=== PATIENT | female | born 2000 | race Caucasian/White ===

== ENCOUNTER 2023-12-09 15:04 | Outpatient (CLI) | payer BC, SELFPAY ==
--- NOTE | ~2023-12-09 | XR_ITS ---
XR lumbar spine 2-3V 12/09/2023 15:53 Indication: Low back Procedure: 3 views lumbar spine Comparison: No prior studies for comparison. Findings: Vertebral body heights are maintained. Pedicles intact. No paraspinal soft tissue abnormali ty. Sacral foramen are symmetric. No evidence for spondylolisthesis. Impression: 1: No significant abnormality of the lumbar spine. Reviewed, dictated and finalized at location B. Impression: 1: No significant abnormality of the lumbar spine.
--- NOTE | ~2023-12-09 | MR_ITS ---
MRI of the lumbar spine Clinical History: Back pain Technique: Axial T2-weighted images, and sagittal T1-weighted, T2-weighted, and T2 fat-sat images wer e acquired. Findings: There is no fracture or subluxation of the lumbar spine. Vertebral bodies maintain normal h eight and alignment. No focal bone marrow signal abnormality seen.. Diffuse T1 hypointensity could re flect underlying anemia/reactive marrow conversion. At L1-L2, there is no disc bulge or herniation. No spinal canal stenosis or neural foraminal narrowin g. At L2-L3, L3-L4, L4-L5, there is no disc bulge or herniation. No spinal canal stenosis or neural fora alonso narrowing at these levels. There is mild facet arthropathy bilaterally at L4-L5. At L5-S1, there is tiny disc bulge. No spinal canal stenosis or neural foraminal narrowing. Paravertebral soft tissues are unremarkable. Impression: Minimal degenerative change, as above. Reviewed, dictated and finalized at [facility]. Impression: Minimal degenerative change, as above.
== END 2023-12-09 15:05 | disposition home or self-care (01) ==
PROVIDERS: PCP Physician Assistant; Visit Provider Physician Assistant
DX: M47.896 Other spondylosis, lumbar region (principal)
CPT/HCPCS: 72100; 72148

== ENCOUNTER 2023-12-23 14:21 | Outpatient (CLI) | payer BC, SELFPAY ==
--- NOTE | ~2023-12-23 | XR_ITS ---
Thoracic spine: Clinical Indication: Back pain AP and lateral views were performed. No fracture is seen. There is normal alignment of the vertebrae. The intervertebral disc spaces appe ar normal. Paravertebral soft tissues appear normal. Impression: No significant abnormalities noted. Reviewed, dictated and finalized at [facility]. Impression: No significant abnormalities noted.
== END 2023-12-23 14:22 | disposition home or self-care (01) ==
LOC: ANHIMG 14:23
PROVIDERS: PCP Physician Assistant; Visit Provider Physician Assistant
DX: M54.6 Pain in thoracic spine (principal)
CPT/HCPCS: 72070

== ENCOUNTER 2025-02-15 10:54 | Outpatient (CLI) | payer BC, SELFPAY ==
--- NOTE | ~2025-02-15 | XR_ITS ---
AP lateral views of the right hip Clinical history: Pain Findings: No acute fracture or dislocation is seen. Osseous alignment is anatomic. Right hip joint is intact. Soft tissues are unremarkable. Impression: No significant abnormality is seen. Reviewed, dictated and finalized at location M. Impression: No significant abnormality is seen.
--- OUTSIDE RECORDS SUMMARY | 2025-02-15 11:06 | XMS_ITS | Clinical Summary ---
Author Organization [facility] Address [address] [place] [address] Care Team Providers Care Joist Setter Name Role Phone Miryam Jackson Primary Care Provider [phone] Allergies No known active allergies Medications cyclobenzaprine (FLEXERIL) 10 mg tablet Take 1 tablet (10 mg total) by mouth 2 (two) times a day as needed for muscle spasms for up to 3 days 6 tablet 09/18/2023 Active naproxen (NAPROSYN) 500 mg tabletIndicatio ns:Pain Take 1 tablet (500 mg total) by mouth 2 (two) times a day with meals for 5 days 10 tablet 09/18/2023 Active lidocaine (LIDODERM) 5 % Place 1 patch on the skin daily for 7 days Remove & discard patch within 12 hours or as directed by MD. 7 patch 09/18/2023 Active Social History Tobacco Use Types Packs/Day Years Used Date Smoking Tobacco: Never Assessed Personal Safety Answer Date Recorded Have you ever been in or are you currently in a harmful physical or emotional relationship or is someone making you feel afraid or unsafe? Denies 09/18/2023 Comments Unknown Sex and Gender Information Value Date Recorded Sex Assigned at Not on file Legal Sex Female 10:23 AM CDT Gender Identity Not on file Sexual Orientation Not on file Last Filed Vital Signs Vital Sign Reading Time Taken Comments Blood Pressure 122/81 09/18/2023 3:21 PM INFANTRY SENIOR SERGEANT Pulse 79 09/18/2023 3:21 PM INFANTRY SENIOR SERGEANT Temperature 36.9 C (98.5 F) 09/18/2023 1:01 PM INFANTRY SENIOR SERGEANT Respiratory Rate 18 09/18/2023 3:21 PM INFANTRY SENIOR SERGEANT Oxygen Saturation 99% 09/18/2023 3:21 PM INFANTRY SENIOR SERGEANT Inhaled Oxygen Concentration - - Weight 95.6 kg (210 lb 12.2 oz) 09/18/2023 1:01 PM INFANTRY SENIOR SERGEANT Height 172.7 cm (5' 8) 09/18/2023 1:01 PM INFANTRY SENIOR SERGEANT Body Mass Index 32.05 09/18/2023 1:01 PM INFANTRY SENIOR SERGEANT Plan of Treatment Health Maintenance Due Date Last Done Comments Cervical Cancer Screening 1999 Depression Screening 1999 Hepatitis C Screening 1999 Regular Well Visit/Exam 18-64 2017 DTaP/Tdap/Td Vaccine (7 - Td or Tdap) 09/16/2021 09/16/2011, 03/25/2005, 03/25/2005, Additional history exists Covid-19 Vaccine ( season) 2024 01/02/2022, 10/18/2020, 09/27/2020 Influenza Vaccine (Season Ended) 2025 Hepatitis B Screening Completed 10/20/2000 , 10/20/2000, 1999, Additional history exists Varicella Vaccines Completed 03/07/2014, 03/25/2005 HPV Vaccines Completed 09/12/2014, 08/19, 05/09/2014, Additional history exists Pneumococcal vaccine <65 Aged Out No longer eligible based on patient's age to complete this topic Insurance ([place]) [address] CLAIMS [facility] Care Teams Joist Setter Relationship Specialty Start Date End Date Miryam Jackson PA [address] [place] [id number] PCP - General Physician Wad Printing Machine Operator 09/18/23
--- OUTSIDE RECORDS SUMMARY | 2025-02-15 11:06 | XMS_ITS | Referral Summary ---
Author Organization [facility] al Address [address] [place] [address] Care Team Providers Care Highway Maintenance Crew Worker Name Role Phone Miryam Jackson Primary Care Provider [phone] Allergies No known active allergies Medications cyclobenzaprine [...] Comments Blood Pressure 122/81 09/18/2023 3:21 PM DOBBY LOOM CHAIN PEGGER Pulse 79 09/18/2023 3:21 PM DOBBY LOOM CHAIN PEGGER Temperature 36.9 C (98.5 F) 09/18/2023 1:01 PM DOBBY LOOM CHAIN PEGGER Respiratory Rate 18 09/18/2023 3:21 PM DOBBY LOOM CHAIN PEGGER Oxygen Saturation 99% 09/18/2023 3:21 PM DOBBY LOOM CHAIN PEGGER Inhaled Oxygen Concentration - - Weight 95.6 kg (210 lb 12.2 oz) 09/18/2023 1:01 PM DOBBY LOOM CHAIN PEGGER Height 172.7 cm (5' 8) 09/18/2023 1:01 PM DOBBY LOOM CHAIN PEGGER Body Mass Index 32.05 09/18/2023 1:01 PM DOBBY LOOM CHAIN PEGGER Plan of Treatment Not on file [place] [address] [facility] Address: [address] [place] [address] [place] [address] [address] Maintenance Crew Worker Relationship Specialty Start Date End Date Miryam Jackson PA [address] [place] [id number] PCP - General Physician Registered Dental Assistant Rda 09/18/23
== END 2025-02-15 10:55 | disposition home or self-care (01) ==
PROVIDERS: PCP Physician Assistant; Visit Provider Physician Assistant
DX: R10.30 Lower abdominal pain, unspecified (principal); M54.50 Low back pain, unspecified; M25.551 Pain in right hip
CPT/HCPCS: 73502